=== PATIENT | female | born 1980 | race Caucasian/White ===

== ENCOUNTER 2017-07-14 18:38 | Emergency (ER) | payer OTHER ==
[~2017-07-14] VITALS: Ht 162.6 cm; Wt 84.4 kg
[2017-07-14 20:18] LABS: HEMATOCRIT 39.3 % (36.0-46.0); HEMOGLOBIN 13.4 G/DL (11.9-15.5); MCH 29.9 PG (29.0-34.0); MCHC 34.1 G/DL (30.0-36.0); MCV 87.7 FL (83-99); PLATELET COUNT 220 K/uL (156-360); RBC DIS.WIDTH-CV 12.4 % (11.8-14.6); RBC DIS.WIDTH-SD 40.3 % (39-53); RED BLOOD COUNT 4.48 M/uL (3.80-5.20); WHITE BLOOD COUNT 6.1 K/uL (4.1-10.2)
[2017-07-14 20:41] LABS: TROP-I INTERPRETATION NEGATIVE; TROPONIN-I < 0.01 ng/mL (0.0-0.30)
[2017-07-14 21:00] LABS: CHLORIDE 105 mEq/L (99-109); POTASSIUM 3.7 mEq/L (3.7-5.4); SODIUM 139 mEq/L (136-147)
[2017-07-14 21:02] LABS: GLUCOSE 88 mg/dL (70-99)
[2017-07-14 21:06] LABS: CREATININE 0.8 mg/dL (0.6-1.3); GFR ESTIMATE (CALCULATED) > 59 mL/min/
[2017-07-14 21:07] LABS: UREA NITROGEN (BUN) 11 mg/dL (9-23)
[2017-07-14 21:29] LABS: D-DIMER ELISA < 150.00 ng/mLDDU (<230)
[2017-07-14] MEDS ORDERED: VENTOLIN HFA18 GM IH (22:32)
[2017-07-14] MEDS ORDERED: ATARAX,VISTARIL25 MG PO (22:32)
[2017-07-14 22:42] VITALS: BP 121/71
== END 2017-07-14 22:49 | disposition home or self-care (01) ==
LOC: EME 18:38
PROVIDERS: Physician Assistant
DX: R06.00 Dyspnea, unspecified (principal); R07.9 Chest pain, unspecified; F41.9 Anxiety disorder, unspecified; F17.200 Nicotine dependence, unspecified, uncomplicated; Z71.6 Tobacco abuse counseling
CPT/HCPCS: 71046; 80048; 84484; 85027; 85379; 93005; 99281; 99284